=== PATIENT | male | born 1960 | race Two or more races ===

== ENCOUNTER 2017-03-12 21:02 | Inpatient (IN) | payer SELFPAY ==
[~2017-03-12] VITALS: Ht 165.1 cm; Wt 77.2 kg
[2017-03-12 22:08] LABS: Basophils # (auto) 0 uL; Basophils % (auto) 0.5 % (0.0-2.0); Eosinophils # (auto) 0 uL; Eosinophils % (auto) 0.6 % (0.0-7.0); Hematocrit 40.1 % (41.0-53.0); Hemoglobin 13.9 g/dL (13.5-17.5); Lymphocytes % (auto) 13.5 % (10.0-50.0); Mean Corpuscular Hemoglobin 29.3 pg (28.0-32.0); Mean Corpuscular Hgb Conc. 34.5 g/dL (32.0-36.0); Mean Corpuscular Volume 84.7 fL (80.0-100.0); Mean Platelet Volume 9.3 fL (7.4-10.4); Monocytes # (auto) 0.5 uL; Monocytes % (auto) 6.3 % (0.0-12.0); Neutrophils % (auto) 79.1 % (37.0-80.0); Platelet Count (auto) 193 10^3/uL (140-450); Red Cell Distribution Width 12.6 % (11.6-16.0); White Blood Cell 7.6 10^3/uL (4.4-10.8)
[2017-03-12 22:25] LABS: Urine Bilirubin Negative (Negative); Urine Blood Negative /uL (Negative); Urine Color Yellow (Yellow); Urine Mucus FEW (None Seen); Urine Nitrite Negative (Negative); Urine RBC <1 /hpf (0 - 3); Urine Sperm PRESENT /hpf (None Seen); Urine Urobilinogen Normal (Negative); Urine pH 5.5 (5.0-8.0)
[2017-03-12 22:28] LABS: Urine Glucose 4+ mg/dL (Normal); Urine Ketone 1+ (Negative)
[2017-03-12 22:33] LABS: Anion Gap 12 (5-15); Blood Urea Nitrogen 15 mg/dL (7-18); Carbon Dioxide 25 mmol/L (21-32); Chloride 101 mmol/L (98-107); Glucose 333 mg/dL (74-106); INR 0.93 (0.9-1.15); Partial Thromboplastin Time 17.2 sec (22.64-33.71); Potassium 3.6 mmol/L (3.5-5.1); Prothrombin Time 10.1 sec (9.37-12.3); Sodium 138 mmol/L (136-145)
[2017-03-12 22:34] LABS: Albumin 3.8 g/dL (3.4-5.0); Alkaline Phosphatase 96 U/L (45-117); Aspartate Aminotransferase 14 U/L (15-37); Bilirubin, Total 0.4 mg/dL (0.2-1.0); Calcium 8.7 mg/dL (8.5-10.1); GFR African American 84 mL/min; GFR Non-African American 70 mL/min; Magnesium 2.2 mg/dL (1.6-2.6); Total Protein 7.9 g/dL (6.4-8.2)
[2017-03-12 22:53] LABS: REFLEX LACTIC ACID YES OR NO YES
[2017-03-12] MEDS ORDERED: ASPirin 325 MG TAB PO ONE (23:00)
[2017-03-13] VITALS (7 sets, daily range): BP systolic 116–127; BP diastolic 68–76
[2017-03-13] MEDS: SODIUM CHLORIDE 0.9% 1,000 ML IV SCH ×2 (01:05→17:58)
[2017-03-13] MEDS ORDERED: ACETAMINOPHEN 325 MG TAB PO PRN (01:15)
[2017-03-13] MEDS ORDERED: TEMAZEPAM 15 MG CAP PO PRN (01:15)
[2017-03-13] MEDS ORDERED: DEXTROSE (50%) 50ML SYRG IV PRN (01:15)
[2017-03-13] MEDS ORDERED: ONDANSETRON HCL 4 MG/2 ML VIAL IV PRN (01:15)
[2017-03-13] MEDS: HYDROcodone-ACET 5/325MG TAB PO PRN ×3 (01:38→16:11)
[2017-03-13] MEDS: InsuLIN REG 1unit/0.01ml Soln (100units/ml) SC SCH ×3 (02:00→16:49)
[2017-03-13] MEDS: ACCU-CHEK COMFORT CURVE STRIP VI SCH ×3 (02:00→16:49)
[2017-03-13] MEDS: FAMOTIDINE 20 MG TAB PO SCH ×2 (09:36→22:24)
[2017-03-13] MEDS: ENOXAPARIN SOD 40 MG/0.4 ML SYRINGE SC SCH (09:36)
[2017-03-13] MEDS: METOPROLOL TARTRATE 25 MG TAB PO SCH ×2 (09:37→22:18)
[2017-03-13] MEDS ORDERED: ASPirin 325 MG TAB PO SCH (10:00)
[2017-03-13] MEDS ORDERED: LORazepam 2MG/ML-1ML VIAL IV PRN (21:30)
[2017-03-13] MEDS ORDERED: ATORVASTATIN 20 MG TAB PO SCH (22:00)
[2017-03-14] MEDS: ACCU-CHEK COMFORT CURVE STRIP VI SCH ×3 (00:35→12:09)
[2017-03-14] MEDS: InsuLIN REG 1unit/0.01ml Soln (100units/ml) SC SCH ×3 (00:52→12:00)
[2017-03-14 05:00] VITALS: BP 111/70
[2017-03-14 05:47] LABS: Basophils # (auto) 0 uL; Basophils % (auto) 0.5 % (0.0-2.0); Eosinophils # (auto) 0.1 uL; Eosinophils % (auto) 1.9 % (0.0-7.0); Hematocrit 37.4 % (41.0-53.0); Hemoglobin 12.8 g/dL (13.5-17.5); Lymphocytes # (auto) 1.8 uL; Lymphocytes % (auto) 32.9 % (10.0-50.0); Mean Corpuscular Hemoglobin 29.1 pg (28.0-32.0); Mean Corpuscular Hgb Conc. 34.1 g/dL (32.0-36.0); Mean Corpuscular Volume 85.2 fL (80.0-100.0); Monocytes # (auto) 0.4 uL; Monocytes % (auto) 7.2 % (0.0-12.0); Neutrophils # (auto) 3.1 uL; Neutrophils % (auto) 57.5 % (37.0-80.0); Platelet Count (auto) 190 10^3/uL (140-450); Red Cell Distribution Width 13.2 % (11.6-16.0); White Blood Cell 5.4 10^3/uL (4.4-10.8)
[2017-03-14 06:19] LABS: Albumin 3.2 g/dL (3.4-5.0); BUN/Creatinine Ratio 22.8; Bilirubin, Total 0.5 mg/dL (0.2-1.0); Potassium 3.5 mmol/L (3.5-5.1); Total Protein 6.7 g/dL (6.4-8.2)
[2017-03-14 09:19] VITALS: BP 110/66
[2017-03-14] MEDS ORDERED: ASPirin 325 MG TAB PO SCH (10:00)
[2017-03-14] MEDS: METOPROLOL TARTRATE 25 MG TAB PO SCH (10:00)
[2017-03-14] MEDS ORDERED: SERTRALINE HCL 50 MG TAB PO SCH (10:00)
[2017-03-14] MEDS: SODIUM CHLORIDE 0.9% 1,000 ML IV SCH (10:25)
[2017-03-14] MEDS: HYDROcodone-ACET 5/325MG TAB PO PRN (10:35)
[2017-03-14] MEDS: FAMOTIDINE 20 MG TAB PO SCH (10:35)
[2017-03-14] MEDS: ENOXAPARIN SOD 40 MG/0.4 ML SYRINGE SC SCH (10:37)
[2017-03-14 11:12] VITALS: BP 110/66
[2017-03-14 12:57] VITALS: BP 121/76
== END 2017-03-14 13:20 | disposition home or self-care (01) | DRG 69 ==
LOC: EDBD 21:02 → ER 21:09 → OVERFLOW 21:10 → EAST 03-13 02:44
PROVIDERS: ADMIT Internal Medicine; ATTEND Family Medicine
DX: G45.9 Transient cerebral ischemic attack, unspecified (principal); E11.65 Type 2 diabetes mellitus with hyperglycemia; E78.5 Hyperlipidemia, unspecified; E11.21 Type 2 diabetes mellitus with diabetic nephropathy; E11.22 Type 2 diabetes mellitus with diabetic chronic kidney disease; I12.9 Hypertensive chronic kidney disease with stage 1 through stage 4 chronic kidney disease, or unspecified chronic kidney disease; Z82.49 Family history of ischemic heart disease and other diseases of the circulatory system; E66.01 Morbid (severe) obesity due to excess calories; Z68.28 Body mass index [BMI] 28.0-28.9, adult; F41.9 Anxiety disorder, unspecified; G51.3 Clonic hemifacial spasm; N18.2 Chronic kidney disease, stage 2 (mild); F41.0 Panic disorder [episodic paroxysmal anxiety]
CPT/HCPCS: 36415; 70450; 70545; 70551; 71010; 80053; 80061; 80307; 80320; 81001; 82962; 83036; 83605; 83735; 84484; 85025; 85610; 85730; 87040; 87081; 87086; 92610; 93005; 93306; 93886; 94761; J1815